=== PATIENT | female | born 1940 | race Caucasian/White ===

== ENCOUNTER 2017-01-15 09:51 | Emergency (ER) | payer MEDICARE ==
[~2017-01-15] VITALS: Ht 154.9 cm; Wt 54.4 kg
[2017-01-15] MEDS ORDERED: PREMARIN 0.45 MG PO (10:01)
[2017-01-15] MEDS ORDERED: ATORVASTATIN CALCIUM 40 MG TAB PO (10:01)
[2017-01-15] MEDS ORDERED: SUMATRIPTAN SUCCINATE 50 MG PO (10:02)
--- NOTE | 2017-01-15 10:12 | NUR ---
PT IS IN ROOM #2A. DR WARE EVALUATED THE PT.
[2017-01-15] MEDS ORDERED: predniSONE 20 MG TABLET PO ONE (11:45)
[2017-01-15] MEDS ORDERED: LEVOFLOXACIN 500 MG TABLET PO ONE (11:45)
--- NOTE | 2017-01-15 11:52 | NUR ---
PT WAS D/C TO HOME. D/C INSTRUCTIONS GIVEN TO THE PT.
[2017-01-15 11:53] VITALS: BP 136/81
[2017-01-15] MEDS ORDERED: LEVOFLOXACIN 500 MG TABLET ONE (12:02)
[2017-01-15] MEDS ORDERED: predniSONE 20 MG TABLET ONE (12:03)
== END 2017-01-15 11:53 | disposition home or self-care (01) ==
LOC: ER 09:51
DX: J40 Bronchitis, not specified as acute or chronic (principal); I70.0 Atherosclerosis of aorta; E78.5 Hyperlipidemia, unspecified
CPT/HCPCS: 71010; A4663; J7512

== ENCOUNTER 2017-01-28 08:37 | Emergency (ER) | payer MEDICARE ==
[~2017-01-28] VITALS: Ht 154.9 cm; Wt 54.9 kg
[~2017-01-28 08:37] MED LIST: ATORVASTATIN CALCIUM 40 MG TAB PO; PREMARIN 0.45 MG PO; SUMATRIPTAN SUCCINATE 50 MG PO
[2017-01-28] MEDS ORDERED: LEVOFLOXACIN 500 MG TABLET PO ONE (09:34)
[2017-01-28] MEDS ORDERED: predniSONE 20 MG TABLET PO ONE (09:45)
--- NOTE | 2017-01-28 09:46 | NUR ---
Patient discharged to home in stable conditon. Written and verbal after care instructions given to patient and spouse. Patient and family verbalized understanding of instructions.
[2017-01-28] MEDS ORDERED: predniSONE 20 MG TABLET ONE (09:50)
[2017-01-28] MEDS ORDERED: LEVOFLOXACIN 500 MG TABLET ONE (09:50)
== END 2017-01-28 09:47 | disposition home or self-care (01) ==
LOC: ER 08:37
DX: J40 Bronchitis, not specified as acute or chronic (principal); R91.8 Other nonspecific abnormal finding of lung field; E78.00 Pure hypercholesterolemia, unspecified
CPT/HCPCS: 71010; 99283; A4663; J7512

== ENCOUNTER 2017-07-18 09:03 | Inpatient (IN) | payer MEDICARE ==
[~2017-07-18] VITALS: Ht 154.9 cm; Wt 54.9 kg
--- NOTE | 2017-07-18 09:18 | NUR ---
Dr Orellana at the bedside for MSE.
[2017-07-18] MEDS ORDERED: IV NS 1000 ML 1,000 ML IV ONE ×2 (09:30→11:30)
[2017-07-18 09:47] LABS: BASOPHILS % (AUTO) 0.8 % (0.0-2.0); EOSINOPHILS # (AUTO) 0.3 K/uL (0.0-0.7); EOSINOPHILS % (AUTO) 5.3 % (0.0-7.0); HEMATOCRIT 39.5 % (31.2-41.9); HEMOGLOBIN 13.5 g/dL (10.9-14.3); LYMPHOCYTES # (AUTO) 1.5 K/uL (20.0-40.0); LYMPHOCYTES % (AUTO) 24.5 % (20.5-51.5); MEAN CORPUSCULAR HEMOGLOBIN 30.9 uug (24.7-32.8); MEAN CORPUSCULAR HGB CONC 34 g/dL (32.3-35.6); MEAN CORPUSCULAR VOLUME 90.5 fL (75.5-95.3); MONOCYTES # (AUTO) 0.5 K/uL (2.0-10.0); MONOCYTES % (AUTO) 8.3 % (0.0-11.0); NEUTROPHILS # (AUTO) 3.7 K/uL (1.8-8.9); NEUTROPHILS % (AUTO) 61.1 % (38.5-71.5); PLATELET COUNT (AUTO) 275 K/uL (179-408); RED BLOOD CELL COUNT(AUTO) 4.36 MIL/uL (3.63-4.92)
[2017-07-18 09:48] LABS: *BILIRUBIN,URIN NEGATIVE (NEGATIVE); *BLOOD, URINE Trace-lysed (NEGATIVE); *COLOR,URINE YELLOW (YELLOW); *KETONES,URINE NEGATIVE (NEGATIVE); *PROTEIN,URINE NEGATIVE (NEGATIVE); *UROBILINOGEN,URINE 0.2 E.U./dl (NORMAL); LEUKOCYTE ESTERASE ,URINE NEGATIVE (NEGATIVE); NITRITE, URINE NEGATIVE (NEGATIVE); UGLUCOSE NEGATIVE (NEGATIVE)
[2017-07-18 09:49] LABS: *CLARITY,URINE HAZY (CLEAR)
[2017-07-18] MEDS ORDERED: IOHEXOL 300MG/ML 100 ML INFUS..BTL ONE (09:53)
[2017-07-18] MEDS ORDERED: IV NORMAL SALINE 100 ML ONE (09:53)
[2017-07-18 09:55] LABS: BACTERIA,URINE MODERATE /HPF (NONE SEEN); SQUAMOUS EPITHELIAL CELL,UR MANY /HPF (NONE SEEN)
--- NOTE | 2017-07-18 09:55 | NUR ---
Pt singned consent for IV contrast, placed in the chart.
[2017-07-18 09:56] LABS: CARBON DIOXIDE 28 mmol/L (21-32); CHLORIDE 103 mmol/L (98-107); CREATININE 0.9 mg/dL (0.6-1.3); GLUCOSE 109 mg/dL (74-106); UREA NITROGEN, BLOOD 14 mg/dL (7-18)
[2017-07-18 10:03] LABS: ALANINE AMINOTRANSFERASE 57 U/L (14-59); ALKALINE PHOSPHATASE 163 U/L (50-136); ASPARTATE AMINOTRANSFERASE 34 U/L (15-37); BILIRUBIN,TOTAL 0.3 mg/dL (0.2-1.0); CREATINE KINASE, TOTAL 66 U/L (26-192); LIPASE 115 U/L (73-393); TOTAL PROTEIN, SERUM 7.3 g/dL (6.4-8.2)
--- NOTE | 2017-07-18 10:14 | NUR ---
Pt out of ER for CT.
[2017-07-18 10:15] LABS: *AMPHETAMINE, URINE NEGATIVE (NEGATIVE); *BARBITURATE, URINE NEGATIVE (NEGATIVE); *CANNABINOID, URINE POSITIVE (NEGATIVE); *COCCAINE, URINE NEGATIVE (NEGATIVE); *OPIATE, URINE NEGATIVE (NEGATIVE); *PHENCYCLIDINE SCREEN,URINE NEGATIVE (NEGATIVE)
[2017-07-18] MEDS ORDERED: METRONIDAZOLE 500 MG/NS 100 ML PIGGYBACK IV ONE (11:14)
[2017-07-18] MEDS ORDERED: CIPROFLOXACIN IV 400 MG in PREMIXED 1 EACH IV SCH (11:14)
[2017-07-18] MEDS ORDERED: MAGNESIUM HYDROXIDE 30 ML LIQUID UDC PO PRN (11:30)
[2017-07-18] MEDS ORDERED: HYDROCODONE/APAP 5-325MG TABLET PO PRN (11:30)
[2017-07-18] MEDS ORDERED: MORPHINE SULFATE 2 MG/1 ML DISP.SYRIN IV PRN (11:30)
[2017-07-18] MEDS ORDERED: ONDANSETRON 4 MG/2 ML VIAL IV PRN (11:30)
[2017-07-18] MEDS ORDERED: Z GUARD REMEDY PASTE 57 GM TUBE TOP PRN (11:30)
[2017-07-18] MEDS ORDERED: ACETAMINOPHEN 325 MG TABLET PO PRN (11:30)
[2017-07-18] MEDS ORDERED: METRONIDAZOLE 500 MG/NS 100ML 100 ML IV ONE (11:30)
--- NOTE | 2017-07-18 11:40 | NUR ---
Belonging list completed and placed in the chart.
[2017-07-18] MEDS ORDERED: MORPHINE SULFATE 4 MG/1 ML DISP.SYRIN IV PRN (12:45)
--- NOTE | 2017-07-18 12:45 | NUR ---
Received this admission from ER per isha, 76 yo female with the chief complaint of nausea/vomiting with abdominal pain with the diagnosis of Diverticulitis. Ushered to room comfortably. Routine admission care rendered. Awake alert, oriented x 4, ambulating independently with steady gait. Saline lock to left AC. Cipro IV infusing, continued. Dr. Velasco informed of admission, with orders.
[2017-07-18 13:00] VITALS: BP 131/74
[2017-07-18] MEDS: METRONIDAZOLE 500 MG/NS 100ML 500 MG in PREMIXED 1 EACH IV SCH ×2 (13:59→21:46)
[2017-07-18] MEDS: IV NS 1000 ML 1,000 ML IV PRN (13:59)
--- NOTE | 2017-07-18 14:00 | NUR ---
IVF started, infusing well. Started on soft diet, tolerated.
[2017-07-18 16:00] VITALS: BP 116/45
--- NOTE | 2017-07-18 18:04 | NUR ---
Complaining on IV site. Removed and will be restarted
[2017-07-18 20:00] VITALS: BP 138/66
[2017-07-18] MEDS: PREMARIN 0.45 MG PO SCH (20:34)
[2017-07-18] MEDS: CIPROFLOXACIN IV 400 MG in PREMIXED 1 EACH IV SCH (20:35)
[2017-07-18] MEDS ORDERED: ZOLPIDEM 5 MG TABLET PO PRN (22:30)
[2017-07-19] MEDS: METRONIDAZOLE 500 MG/NS 100ML 500 MG in PREMIXED 1 EACH IV SCH ×3 (05:03→23:18)
[2017-07-19] MEDS: IV NS 1000 ML 1,000 ML IV PRN ×2 (05:08→21:11)
[2017-07-19 06:00] VITALS: BP 98/47
[2017-07-19 07:04] LABS: BASOPHILS % (AUTO) 0.5 % (0.0-2.0); EOSINOPHILS # (AUTO) 0.5 K/uL (0.0-0.7); EOSINOPHILS % (AUTO) 9.2 % (0.0-7.0); LYMPHOCYTES # (AUTO) 1.6 K/uL (20.0-40.0); LYMPHOCYTES % (AUTO) 27.4 % (20.5-51.5); MEAN CORPUSCULAR HGB CONC 34 g/dL (32.3-35.6); MEAN CORPUSCULAR VOLUME 90.8 fL (75.5-95.3); MONOCYTES # (AUTO) 0.6 K/uL (2.0-10.0); MONOCYTES % (AUTO) 9.4 % (0.0-11.0); NEUTROPHILS # (AUTO) 3.2 K/uL (1.8-8.9); NEUTROPHILS % (AUTO) 53.5 % (38.5-71.5); PLATELET COUNT (AUTO) 262 K/uL (179-408); RED BLOOD CELL COUNT(AUTO) 3.71 MIL/uL (3.63-4.92); WHITE BLOOD COUNT (AUTO) 5.9 K/uL (3.8-11.8)
[2017-07-19 07:29] LABS: HEMATOCRIT 33.7 % (31.2-41.9); HEMOGLOBIN 11.5 g/dL (10.9-14.3)
--- NOTE | 2017-07-19 07:30 | NUR ---
RECEIVED REPORT FROM ELECTRONIC PAGE MAKEUP SYSTEM OPERATOR NURSE, PATIENT IN BED AWAKE, REPORTING HEADACHE. PATIENTS IS AT THE BEDSIDE. PATIENTS BED IN LOW POSITION, SIDE RAILS UP X2.
[2017-07-19 07:47] LABS: CARBON DIOXIDE 26 mmol/L (21-32); CHLORIDE 105 mmol/L (98-107); CREATININE 0.8 mg/dL (0.6-1.3); GLUCOSE 98 mg/dL (74-106); MAGNESIUM 1.8 mg/dL (1.8-2.4); PHOSPHOROUS 3.6 mg/dL (2.5-4.9); POTASSIUM 3.7 mmol/L (3.5-5.1); UREA NITROGEN, BLOOD 10 mg/dL (7-18)
[2017-07-19] MEDS ORDERED: ZOLPIDEM 5 MG TABLET PO PRN (08:00)
[2017-07-19] MEDS ORDERED: DIAZ2TAB PO (08:36)
[2017-07-19] MEDS ORDERED: PREMARIN 0.45 MG PO SCH ×2 (09:00→21:00)
[2017-07-19] MEDS: PREMARIN 0.45 MG PO SCH ×2 (09:00→09:19)
[2017-07-19] MEDS: CIPROFLOXACIN IV 400 MG in PREMIXED 1 EACH IV SCH ×2 (09:20→20:22)
[2017-07-19] MEDS ORDERED: SUMATRIPTAN SUCCINATE PO SCH (10:30)
[2017-07-19] MEDS ORDERED: DIAZEPAM 2 MG TABLET PO SCH (10:30)
[2017-07-19 11:25] VITALS: BP 129/66
[2017-07-19] MEDS: SUMATRIPTAN SUCCINATE 50 MG TABLET PO PRN (11:38)
[2017-07-19] MEDS: DIAZEPAM 2 MG TABLET PO PRN (11:38)
--- NOTE | 2017-07-19 12:30 | NUR ---
PATIENT UNABLE TO TOLERATE LUNCH. PROVIDED PATIENT WITH JELLO AND OTHER CLEAR LIQUIDS.
[2017-07-19 15:24] VITALS: BP 122/59
--- NOTE | 2017-07-19 16:00 | NUR ---
PATIENT WAS ONLY ABLE TO EAT A HALF A CUP OF MUSHROOM SOUP THAT HER BROUGHT HER.
--- NOTE | 2017-07-19 18:13 | NUR ---
PATIENT HAS BEEN COOPERATIVE WITH CARE THROUGHOUT THE DAY. PATIENT REPORTS FEELING BETTER BUT STILL CANNOT TOLERATE MEALS. CURRENTLY PATIENT IS IN BED, NO DISTRESS NOTED, BED IN LOW POSITION, SIDE RAILS UP X2.
[2017-07-19 20:10] VITALS: BP 140/73
[2017-07-20] MEDS: DIAZEPAM 2 MG TABLET PO PRN (01:34)
[2017-07-20] MEDS: SUMATRIPTAN SUCCINATE 50 MG TABLET PO PRN (04:54)
[2017-07-20] MEDS: METRONIDAZOLE 500 MG/NS 100ML 500 MG in PREMIXED 1 EACH IV SCH (05:01)
[2017-07-20 05:22] VITALS: BP 123/66
--- NOTE | 2017-07-20 06:42 | NUR ---
Pt continues to feel anxious about her health and being in the hospital. Still c/o unable to sleep despite having administered medications at bedtime (Gavi & Virgilio). Assisted to restroom and provided ice chips and fluids. Provided extra blankets for comfort. Patient is also worried she won't be able to tolerate regular foods and won't be discharged. Still complains of headache. Administered Imitrex and patient is currently sleeping.
--- NOTE | 2017-07-20 08:00 | NUR ---
AWAKE ALERT COOPERATE WELL NO PAIN OR N/V EAT BREAKFAST MOD AMT RESTING WELL WITH CALL DA SILVA IN REACH
[2017-07-20] MEDS: CIPROFLOXACIN IV 400 MG in PREMIXED 1 EACH IV SCH (08:37)
[2017-07-20] MEDS ORDERED: LEVO500T2 PO (08:49)
[2017-07-20] MEDS ORDERED: METR500T PO (08:49)
--- NOTE | 2017-07-20 09:00 | NUR ---
C/O OF CONSTIPATION MOM PO PRN GIVEN ORDER DR ENGLISH SEEN PATIENT THIS AM AND ORDER OK TO D/C HOME TODAY D/C INSTRUCTION REGARDING F/U WITH OWN PMD CONTINUE HOME MEDICINE PRECRIPTION /ORDER EDUCATION PK GIVE ,VERBALIZES UNDERSTAND AND SIGNS D/C SHEET HL WAS DISCONTINUE PRIOR D/C HOME TODAY
--- NOTE | 2017-07-20 10:55 | NUR ---
D/C HOME WITH HER BELONGING ACCOMPANIES WITH CONDITION STABLE NO PAIN OR ACUTE DISTRESS
== END 2017-07-20 10:55 | disposition home or self-care (01) | DRG 391 ==
LOC: ER 09:03 → TELE 11:58 → MED 13:10
PROVIDERS: ADMIT Internal Medicine; ATTEND Internal Medicine
DX: K57.32 Diverticulitis of large intestine without perforation or abscess without bleeding (principal); E43 Unspecified severe protein-calorie malnutrition; E78.5 Hyperlipidemia, unspecified; F32.9 Major depressive disorder, single episode, unspecified; F41.9 Anxiety disorder, unspecified; G43.909 Migraine, unspecified, not intractable, without status migrainosus; Z90.710 Acquired absence of both cervix and uterus; E88.09 Other disorders of plasma-protein metabolism, not elsewhere classified; M62.50 Muscle wasting and atrophy, not elsewhere classified, unspecified site; Z68.22 Body mass index [BMI] 22.0-22.9, adult
CPT/HCPCS: 36415; 70030-TC; 71045; 80307; 83690; 83735; 84100; 85025; 93005; A4663; J0744; J2270; J2405; J3490; J7030; Q9967

== ENCOUNTER 2018-05-11 16:37 | Emergency (ER) | payer MEDICARE ==
[~2018-05-11] VITALS: Ht 154.9 cm; Wt 55.3 kg
[~2018-05-11 16:37] MED LIST changes: +DIAZ2TAB PO; +LEVO500T2 PO; +METR500T PO
--- NOTE | 2018-05-11 17:25 | NUR ---
Pt Out of ER for CT.
[2018-05-11 17:40] VITALS: BP 120/70
--- NOTE | 2018-05-11 17:41 | NUR ---
Patient discharged to home in stable conditon. Written and verbal after care instructions given. Patient verbalizes understanding of instructions. Pt walked out of Er w/ steady gait, accompained by .
== END 2018-05-11 17:42 | disposition home or self-care (01) ==
LOC: ER 16:39
DX: S00.03XA Contusion of scalp, initial encounter (principal); E78.00 Pure hypercholesterolemia, unspecified; Z90.710 Acquired absence of both cervix and uterus; Z79.899 Other long term (current) drug therapy; Z79.2 Long term (current) use of antibiotics; Z88.1 Allergy status to other antibiotic agents; Z90.89 Acquired absence of other organs; W22.8XXA Striking against or struck by other objects, initial encounter; Y93.89 Activity, other specified; Y92.89 Other specified places as the place of occurrence of the external cause; Y99.8 Other external cause status
CPT/HCPCS: 70450; A4663

== ENCOUNTER 2019-03-04 10:31 | Emergency (ER) | payer MEDICARE ==
[~2019-03-04] VITALS: Ht 154.9 cm; Wt 54.4 kg
[2019-03-04] MEDS ORDERED: ALPR0.25 PO (10:47)
--- NOTE | 2019-03-04 11:10 | NUR ---
Patient ambulated with stable gait. A/Ox4. Speech is clear, speaks in complete sentences. No acute neuro deficits. Patient came for LLQ pain x 2 days. Respiratory even and unlabored, no cough no sob. No acute cardiovascular distress, cap refill <3 sec, skin warm to touch. Denies any current n/v/d. Patient in bed at lowest position, sr upx2, call light within reach. Fall precautions implemented per protocol.
--- NOTE | 2019-03-04 11:14 | NUR ---
ERMD at bedside for MSe
--- NOTE | 2019-03-04 11:31 | NUR ---
Patient transported to CT in stable condition.
--- NOTE | 2019-03-04 11:41 | NUR ---
Patient backin room from CT
--- NOTE | 2019-03-04 12:10 | NUR ---
Patient discharged to home in stable conditon. Written and verbal after care instructions given. Patient verbalizes understanding of instructions. Patient ambulated with stable gait.
[2019-03-04 12:12] VITALS: BP 110/74
== END 2019-03-04 12:12 | disposition home or self-care (01) ==
LOC: ER 10:31
DX: K57.32 Diverticulitis of large intestine without perforation or abscess without bleeding (principal); E78.5 Hyperlipidemia, unspecified; Z90.49 Acquired absence of other specified parts of digestive tract; Z90.89 Acquired absence of other organs; Z90.710 Acquired absence of both cervix and uterus; Z79.899 Other long term (current) drug therapy; Z79.2 Long term (current) use of antibiotics
CPT/HCPCS: A4663

== ENCOUNTER 2019-06-24 11:00 | Emergency (ER) | payer MEDICARE ==
[~2019-06-24] VITALS: Ht 154.9 cm; Wt 54.4 kg
[2019-06-24 12:03] LABS: BASOPHILS # (AUTO) 0.1 K/uL (0.0-8.0); BASOPHILS % (AUTO) 0.9 % (0.0-2.0); EOSINOPHILS # (AUTO) 0.4 K/uL (0.0-0.7); EOSINOPHILS % (AUTO) 5.9 % (0.0-7.0); HEMOGLOBIN 12.4 g/dL (10.9-14.3); LYMPHOCYTES # (AUTO) 1.2 K/uL (20.0-40.0); LYMPHOCYTES % (AUTO) 17.4 % (20.5-51.5); MEAN CORPUSCULAR HEMOGLOBIN 30.6 uug (24.7-32.8); MEAN CORPUSCULAR HGB CONC 34 g/dL (32.3-35.6); MEAN CORPUSCULAR VOLUME 91.4 fL (75.5-95.3); MONOCYTES # (AUTO) 0.5 K/uL (2.0-10.0); MONOCYTES % (AUTO) 7.4 % (0.0-11.0); NEUTROPHILS # (AUTO) 4.6 K/uL (1.8-8.9); NEUTROPHILS % (AUTO) 68.4 % (38.5-71.5); PLATELET COUNT (AUTO) 336 K/uL (179-408); RED BLOOD CELL COUNT(AUTO) 4.05 MIL/uL (3.63-4.92); WHITE BLOOD COUNT (AUTO) 6.7 K/uL (3.8-11.8)
[2019-06-24 12:10] LABS: CREATININE 0.8 mg/dL (0.6-1.3); POTASSIUM 4.4 mmol/L (3.5-5.1)
[2019-06-24 12:22] LABS: BILIRUBIN,DIRECT 0.1 mg/dL (0.0-0.2); BILIRUBIN,TOTAL 0.4 mg/dL (0.2-1.0); TOTAL PROTEIN, SERUM 6.6 g/dL (6.4-8.2)
--- NOTE | 2019-06-24 13:00 | NUR ---
Patient discharged to home in stable conditon. Written and verbal after care instructions given. Patient verbalizes understanding of instructions.
== END 2019-06-24 13:15 | disposition home or self-care (01) ==
LOC: ER 11:16
DX: J40 Bronchitis, not specified as acute or chronic (principal); E78.5 Hyperlipidemia, unspecified; Z60.2 Problems related to living alone; Z79.899 Other long term (current) drug therapy; Z88.1 Allergy status to other antibiotic agents; Z90.710 Acquired absence of both cervix and uterus
CPT/HCPCS: 36415; 70030-TC; 71045; 85025; 93005; A4663

== ENCOUNTER 2020-01-23 17:07 | Emergency (ER) | payer MEDICARE ==
[~2020-01-23] VITALS: Ht 154.9 cm; Wt 53.1 kg
[~2020-01-23 17:07] MED LIST changes: +ALPR0.25 PO; -DIAZ2TAB PO; -LEVO500T2 PO; -METR500T PO
[2020-01-23] MEDS ORDERED: ESTROGEN (17:16)
[2020-01-23] MEDS ORDERED: LIPITOR (17:16)
[2020-01-23] MEDS ORDERED: LIDOCAINE 2%-EPI 1:100,000 20 ML VIAL ONE (17:29)
[2020-01-23] MEDS ORDERED: LIDOCAINE 2%-EPI 1:100,000 20 ML VIAL TP ONE (17:30)
[2020-01-23] MEDS ORDERED: ACETAMINOPHEN 325 MG TABLET PO ONE (17:30)
[2020-01-23] MEDS ORDERED: TDAP DIPH,PERTUSS,TET VAC/PF 0.5 ML DISP.SYRIN IM ONE ×2 (17:30→17:53)
[2020-01-23] MEDS ORDERED: NEOMY/BACITRA/POLYMYXIN B OINT UD PACKET TP ONE (17:32)
[2020-01-23] MEDS ORDERED: ACETAMINOPHEN 325 MG TABLET ONE (17:53)
--- NOTE | 2020-01-23 18:14 | NUR ---
Extra dressing provided per Dr Garcia's verbal order. Patient discharged to home in stable condition & steady gait. Written and verbal after care instructions given. Patient verbalizes understanding and compliance of instructions. Stressed follow up with primary doctor or return to ER for worsening s/s.
== END 2020-01-23 18:17 | disposition home or self-care (01) ==
LOC: ER 17:07
DX: S81.801A Unspecified open wound, right lower leg, initial encounter (principal); W20.8XXA Other cause of strike by thrown, projected or falling object, initial encounter; Y93.89 Activity, other specified; Y92.039 Unspecified place in apartment as the place of occurrence of the external cause; J45.909 Unspecified asthma, uncomplicated; Z90.710 Acquired absence of both cervix and uterus; Z85.3 Personal history of malignant neoplasm of breast; Z86.69 Personal history of other diseases of the nervous system and sense organs; Z87.19 Personal history of other diseases of the digestive system; Z88.1 Allergy status to other antibiotic agents; Z79.899 Other long term (current) drug therapy
CPT/HCPCS: 90715; A4663

== ENCOUNTER 2020-01-25 09:07 | Emergency (ER) | payer MEDICARE ==
[~2020-01-25] VITALS: Ht 154.9 cm; Wt 53.1 kg
[~2020-01-25 09:07] MED LIST changes: +ESTROGEN; +LIPITOR
[2020-01-25] MEDS ORDERED: BACITRACIN ZINC OINT 15 GM TUBE TOP STA (09:24)
--- NOTE | 2020-01-25 09:28 | NUR ---
Cleaned right dietrich wound as ordered.
--- NOTE | 2020-01-25 09:41 | NUR ---
Patient discharged to home in stable condition. Written and verbal after care instructions given. Patient verbalizes understanding of instructions. Stressed follow up or return to ER for worsening s/s.
[2020-01-25 09:42] VITALS: BP 118/66
== END 2020-01-25 09:43 | disposition home or self-care (01) ==
LOC: ER 09:07
DX: S81.801D Unspecified open wound, right lower leg, subsequent encounter (principal); X58.XXXD Exposure to other specified factors, subsequent encounter; J45.909 Unspecified asthma, uncomplicated; E78.5 Hyperlipidemia, unspecified; Z85.3 Personal history of malignant neoplasm of breast; Z88.1 Allergy status to other antibiotic agents; Z79.899 Other long term (current) drug therapy
CPT/HCPCS: A4663

== ENCOUNTER 2021-09-20 23:44 | Inpatient (IN) | payer MEDICARE ==
[~2021-09-20] VITALS: Ht 154.9 cm; Wt 49.0 kg
--- NOTE | 2021-09-20 23:56 | NUR ---
Dr Farias at bedside, MSE in progress.
[2021-09-21] MEDS ORDERED: IV NORMAL SALINE 1000 ML BAG IV ONE
[2021-09-21] MEDS ORDERED: LEVO25TA9 PO (00:15)
[2021-09-21] MEDS ORDERED: [UNRECOGNIZED DRUG - CODE] IV (00:15)
[2021-09-21] MEDS ORDERED: FAMO10TA41 PO (00:15)
[2021-09-21] MEDS ORDERED: ATOR20TA PO (00:15)
[2021-09-21] MEDS ORDERED: ONDANSETRON 4 MG/2 ML VIAL ONE ×2 (00:18→02:52)
[2021-09-21] MEDS ORDERED: HYDROMORPHONE 1 MG/1 ML DISP.SYRIN ONE ×2 (00:19→02:52)
[2021-09-21 00:22] LABS: HEMATOCRIT 35.5 % (31.2-41.9); MEAN CORPUSCULAR HEMOGLOBIN 35.3 uug (24.7-32.8); MEAN CORPUSCULAR VOLUME 103.9 fL (75.5-95.3); PLATELET COUNT (AUTO) 309 K/uL (179-408)
[2021-09-21 00:28] LABS: CARBON DIOXIDE 28 mmol/L (21-32); CHLORIDE 98 mmol/L (98-107); CREATININE 1.1 mg/dL (0.6-1.3); GLUCOSE 180 mg/dL (74-106); POTASSIUM 4.6 mmol/L (3.5-5.1); UREA NITROGEN, BLOOD 22 mg/dL (7-18)
[2021-09-21 00:36] LABS: ALANINE AMINOTRANSFERASE 18 U/L (14-59); ALKALINE PHOSPHATASE 245 U/L (50-136); ASPARTATE AMINOTRANSFERASE 15 U/L (15-37); BILIRUBIN,DIRECT 0.1 mg/dL (0.0-0.2); BILIRUBIN,TOTAL 0.4 mg/dL (0.2-1.0); LIPASE 118 U/L (73-393); TOTAL PROTEIN, SERUM 7.5 g/dL (6.4-8.2)
--- NOTE | 2021-09-21 02:11 | NUR ---
Called [facility] for panel call.
[2021-09-21 02:33] LABS: *BILIRUBIN,URIN NEGATIVE (NEGATIVE); *BLOOD, URINE TRACE (NEGATIVE); *CLARITY,URINE CLEAR (CLEAR); *COLOR,URINE YELLOW (YELLOW); *KETONES,URINE 3+ (NEGATIVE); *UROBILINOGEN,URINE 0.2 E.U./dl (NORMAL); LEUKOCYTE ESTERASE ,URINE NEGATIVE (NEGATIVE); NITRITE, URINE NEGATIVE (NEGATIVE); UGLUCOSE NEGATIVE (NEGATIVE)
--- NOTE | 2021-09-21 02:36 | NUR ---
2nd call made for [employer]
[2021-09-21] MEDS ORDERED: REMEDY ESSENTIAL ZINC PASTE 113 GM TP PRN (03:00)
[2021-09-21] MEDS ORDERED: ONDANSETRON 4 MG/2 ML VIAL IV PRN (03:00)
[2021-09-21] MEDS ORDERED: IV NS 1000 ML 1,000 ML IV ONE (03:00)
[2021-09-21] MEDS ORDERED: HYDROMORPHONE 1 MG/1 ML DISP.SYRIN IV ONE ×2 (03:00)
[2021-09-21] MEDS ORDERED: MAGNESIUM HYDROXIDE 30 ML LIQUID UDC PO PRN (03:00)
[2021-09-21] MEDS ORDERED: ONDANSETRON 4 MG/2 ML VIAL IV ONE ×2 (03:00)
[2021-09-21] MEDS ORDERED: ACETAMINOPHEN 325 MG TABLET PO PRN (03:00)
[2021-09-21] MEDS ORDERED: MORPHINE SULFATE 2 MG/1 ML DISP.SYRIN IV PRN (03:00)
--- NOTE | 2021-09-21 03:32 | NUR ---
Report given to Maty LIPSCOMB.
[2021-09-21 04:00] VITALS: BP 152/75
--- NOTE | 2021-09-21 04:10 | NUR ---
Received and admitted patient from ER per isha, not in respiratory distress, not in pain at this time. Started IVF NS 1L at 75cc/hour as ordered, routine admission care done. Safety precautions provided, call light placed within reach.
--- NOTE | 2021-09-21 04:16 | NUR ---
pt taken to room 316 via [facility] with all belongings.
[2021-09-21 04:43] LABS: BACTERIA,URINE FEW /HPF (NONE SEEN); RBC,URINE 0-3 /HPF (0-3); SQUAMOUS EPITHELIAL CELL,UR FEW /HPF (NONE SEEN); WBC,URINE 0-3 /HPF (0-3)
--- NOTE | 2021-09-21 05:21 | NUR ---
To followup vaccine information from the , per patient the will come today to bring the vaccine information.
--- NOTE | 2021-09-21 06:38 | NUR ---
Patient sleeping, no signs of abdominal pain, not in respiratory distress, vitally stable. For continuity of care.
[2021-09-21 06:44] LABS: HEMATOCRIT 33.3 % (31.2-41.9); MEAN CORPUSCULAR HEMOGLOBIN 35.5 uug (24.7-32.8); MEAN CORPUSCULAR VOLUME 103.7 fL (75.5-95.3); PLATELET COUNT (AUTO) 300 K/uL (179-408)
[2021-09-21 06:53] LABS: MAGNESIUM 2.2 mg/dL (1.8-2.4); PHOSPHOROUS 4.6 mg/dL (2.5-4.9); POTASSIUM 5.2 mmol/L (3.5-5.1)
--- NOTE | 2021-09-21 08:00 | NUR ---
AWAKE ALERT AND ORIENTED X3 DENIES PAIN OR SOB, CONTINUE NPO ORDERED. DR JON CALLED AND GAVE ORDER TO OBTAIN CONSENT FOR VENTRAL HERNIA REPAIR POSSIBLE BOWEL RESECTION
[2021-09-21] MEDS ORDERED: DIATR MEGLU/DIATRIZOATE SODIUM 30 ML BOTTLE ONE ×2 (08:50→08:51)
--- NOTE | 2021-09-21 09:00 | NUR ---
PATIENT MADE AWARE OF THE PLAN FOR SURGERY THIS AFTERNOON AT 1500
[2021-09-21] MEDS ORDERED: BUPIVACAINE/EPI PF 0.5% 10 ML VIAL ONE (10:36)
[2021-09-21 11:36] VITALS: BP 122/69
--- NOTE | 2021-09-21 13:00 | NUR ---
PATIENT HAD 2X BM SOFT , LARGE AND FORMED, NO NAUSEA AND VOMITING, DENIES PAIN DR SA SIERRA AWARE WITH ORDER FOR ABDOMINAL SERIES. IF NEGATIVE HE SAID OK TO DISCHARGE AND CONTINUE ALL HOME MEDS AND FOLLOW-UP WITH PCP AND ONCOLOGIST
--- NOTE | 2021-09-21 13:29 | NUR ---
DR JON NOTIFIED OF SMALL BOWEL XRAY WITH ORDER TO CANCEL SURGERY, OR STAFF NOTIFIED
--- NOTE | 2021-09-21 15:00 | NUR ---
SEEN BY DR JON, NO NEW ORDERS AND SAID OK TO GO HOME
[2021-09-21 15:49] VITALS: BP 120/53
--- NOTE | 2021-09-21 16:00 | NUR ---
DISCHARGED HOME STABLE WITH FOLLOW-UP INSTRUCTION AND CONTINUE ALL HOME MEDICATIONS.
== END 2021-09-21 16:00 | disposition home or self-care (01) | DRG 394 ==
LOC: ER 23:52 → MEDSURG3 09-21 02:42
DX: K43.6 Other and unspecified ventral hernia with obstruction, without gangrene (principal); C56.9 Malignant neoplasm of unspecified ovary; E87.1 Hypo-osmolality and hyponatremia; N13.30 Unspecified hydronephrosis; E03.9 Hypothyroidism, unspecified; E83.52 Hypercalcemia; E86.1 Hypovolemia; J45.909 Unspecified asthma, uncomplicated; K80.20 Calculus of gallbladder without cholecystitis without obstruction; Z20.822 Contact with and (suspected) exposure to COVID-19; Z85.3 Personal history of malignant neoplasm of breast; Z90.710 Acquired absence of both cervix and uterus; Z85.43 Personal history of malignant neoplasm of ovary; I10 Essential (primary) hypertension; D72.829 Elevated white blood cell count, unspecified; D75.89 Other specified diseases of blood and blood-forming organs; E87.5 Hyperkalemia; G43.909 Migraine, unspecified, not intractable, without status migrainosus; E78.5 Hyperlipidemia, unspecified; Z79.899 Other long term (current) drug therapy
CPT/HCPCS: 36415; 71045; 74018; 74250; 83690; 83735; 84100; 84484; 85025; 87040; 93005; G0378; J1170; J2405; J3490; J7040; Q9963